=== PATIENT | female | born 1955 | race Two or more races ===

== ENCOUNTER 2021-05-20 15:12 | Outpatient (CLI) | payer OTHER ==
[~2021-05-20 15:12] MED LIST: AZITHROMYCIN250 MG; CANDESARTAN CILE8 MG; DECADRON4 MG; MEDROLPACK PO; MELATONIN5 M2 PO; OMEGA-3 ACID ETH1 GM PO; PLAVIX75 MG; PRAVASTATIN SOD40 MG; PROAIR HFA8.5 GM; PROVENTIL HFA6.7 GM IH; TUSSI PRES-B L480 ML; TUSSIN DM LIQU118 ML PO; UCERIS9 MG; VITAMIN C500 M1 PO; VITAMIN D3125 MC2 PO; ZETIA10 MG; ZINC SULFATE220 M2 PO
== END 2021-05-20 15:32 | disposition home or self-care (01) ==
LOC: TOM 15:12
PROVIDERS: ATTEND Internal Medicine Pulmonary Disease
DX: J45.998 Other asthma (principal); R06.02 Shortness of breath; U07.1 COVID-19

== ENCOUNTER 2022-03-21 21:44 | Emergency (ER) | payer OTHER ==
[~2022-03-21] VITALS: Ht 162.6 cm; Wt 79.4 kg
[2022-03-21] MEDS ORDERED: ATACAND4 MG (22:32)
[2022-03-22] MEDS ORDERED: MEDROL8 MG PO (01:50)
== END 2022-03-22 01:59 | disposition home or self-care (01) ==
LOC: ER 21:44
DX: S62.101A Fracture of unspecified carpal bone, right wrist, initial encounter for closed fracture (principal); W18.30XA Fall on same level, unspecified, initial encounter; Y93.89 Activity, other specified; Y92.019 Unspecified place in single-family (private) house as the place of occurrence of the external cause; Z88.0 Allergy status to penicillin; Z88.6 Allergy status to analgesic agent; I10 Essential (primary) hypertension; E78.00 Pure hypercholesterolemia, unspecified

== ENCOUNTER 2022-03-29 08:58 | Outpatient (CLI) | payer OTHER ==
[~2022-03-29 08:58] MED LIST changes: +ATACAND4 MG; +MEDROL8 MG PO
== END 2022-03-29 09:00 | disposition home or self-care (01) ==
LOC: RAD 08:58
PROVIDERS: ATTEND Orthopaedic Surgery
DX: M79.645 Pain in left finger(s) (principal); M79.605 Pain in left leg; S52.531A Colles' fracture of right radius, initial encounter for closed fracture